=== PATIENT | male | born 1960 | race African-American/Black ===

== ENCOUNTER 2019-02-21 07:03 | Emergency (ER) | payer MEDICAID ==
[~2019-02-21] VITALS: Ht 188 cm; Wt 112.0 kg
[2019-02-21] MEDS ORDERED: LEVETIRACETAM 1000MG/100ML 100 ML IV ONE (07:15)
[2019-02-21 08:11] LABS: CHLORIDE 111 mEq/L (98-107)
[2019-02-21 08:15] LABS: ETHANOL BLOOD < 10 mg/dL
[2019-02-21 08:31] LABS: BASOPHILS % 0.9 % (0.0-2.0); EOSINOPHILS % 1.9 % (0.0-5.0); HEMATOCRIT. 48.8 % (42.0-52.0); HEMOGLOBIN. 16.1 g/dL (14.0-18.0); LYMPHOCYTES % 27.8 % (20.0-50.0); MEAN CORPUSCULAR HEMOGLOBIN 31.9 pg (28.0-32.0); MEAN CORPUSCULAR VOLUME 96.3 fL (80.0-94.0); MEAN PLATELET VOLUME 9.3 fl (7.4-10.4); MONOCYTES % 13.7 % (2.0-8.0); NEUTROPHILS % 55.7 % (40.0-76.0); PLATELET 177 x1000/uL (130-400); RED BLOOD CELL COUNT 5.06 mill/uL (4.7-6.1); RED CELL DISTRIBUTION WIDTH 13.2 % (11.6-14.6)
[2019-02-21 10:15] LABS: CLARITY URINE CLEAR (CLEAR); COLOR URINE YELLOW (YELLOW); KETONES URINE NEGATIVE (NEGATIVE); LEUKOCYTE ESTERASE URINE NEGATIVE (NEGATIVE); NITRITE URINE NEGATIVE (NEGATIVE); OCCULT BLOOD URINE NEGATIVE (NEGATIVE); PH URINE 5.5 (4.5-8.0); PROTEIN URINE 1+ (NEGATIVE); SPECIFIC GRAVITY URINE 1.025 (1.005-1.030)
[2019-02-21 10:28] LABS: *AMPHETAMINES SCREEN URINE NEGATIVE (NEGATIVE)
[2019-02-21 10:29] LABS: *BARBITURATES SCREEN URINE NEGATIVE (NEGATIVE); *BENZODIAZEPINES SCREEN URINE NEGATIVE (NEGATIVE); *COCAINE SCREEN URINE PRESUMTIVE POSITIVE (NEGATIVE); METHADONE URINE SCREEN NEGATIVE (NEGATIVE); OPIATES URINE SCREEN NEGATIVE (NEGATIVE); PHENCYCLIDINE URINE SCREEN NEGATIVE (NEGATIVE)
[2019-02-21 10:30] LABS: CANNABINOID URINE SCREEN NEGATIVE (NEGATIVE)
[2019-02-21 12:00] VITALS: BP 124/89
== END 2019-02-21 12:24 | disposition home or self-care (01) ==
LOC: ER 07:03
DX: G40.909 Epilepsy, unspecified, not intractable, without status epilepticus (principal)
CPT/HCPCS: 36415; 80053; 80305; 80320; 81003; 85025; 96365; 96366; 99283; J1953; G0480

== ENCOUNTER 2019-03-06 14:20 | Emergency (ER) | payer MEDICAID ==
[~2019-03-06] VITALS: Ht 185.4 cm; Wt 97.0 kg
[2019-03-06] MEDS ORDERED: SODIUM CHLORIDE 0.9% 1,000 ML IV ONE (14:45)
[2019-03-06 15:10] LABS: BASOPHILS % 0.4 % (0.0-2.0); EOSINOPHILS % 1.9 % (0.0-5.0); HEMATOCRIT. 42.5 % (42.0-52.0); HEMOGLOBIN. 14.3 g/dL (14.0-18.0); LYMPHOCYTES % 36.1 % (20.0-50.0); MEAN CORPUSCULAR HEMOGLOBIN 31.4 pg (28.0-32.0); MEAN CORPUSCULAR VOLUME 93.3 fL (80.0-94.0); MONOCYTES % 14.1 % (2.0-8.0); NEUTROPHILS % 47.5 % (40.0-76.0); PLATELET 164 x1000/uL (130-400); RED BLOOD CELL COUNT 4.56 mill/uL (4.7-6.1); RED CELL DISTRIBUTION WIDTH 12.9 % (11.6-14.6)
[2019-03-06 15:13] LABS: CHLORIDE 113 mEq/L (98-107)
[2019-03-06 15:17] LABS: ETHANOL BLOOD < 10 mg/dL
[2019-03-06 15:24] LABS: CARBAMAZEPINE < 0.5 ug/mL (4-12); PHENOBARBITAL < 2.1 ug/mL (15.0-40.0)
[2019-03-06] MEDS ORDERED: PHENYTOIN SODIUM 1,000 MG in SODIUM CHLORIDE 0.9% 100 ML IV ONE (16:00)
[2019-03-06] MEDS ORDERED: PHENYTOIN SODIUM EXTENDED 100MG CAPSULE PO ONE (17:45)
[2019-03-06 19:45] VITALS: BP 147/107
== END 2019-03-06 20:12 | disposition home or self-care (01) ==
LOC: ER 14:25
DX: R56.9 Unspecified convulsions (principal); R89.2 Abnormal level of other drugs, medicaments and biological substances in specimens from other organs, systems and tissues; J44.9 Chronic obstructive pulmonary disease, unspecified; I10 Essential (primary) hypertension; F14.10 Cocaine abuse, uncomplicated
CPT/HCPCS: 36415; 70450; 80053; 80156; 80165; 80184; 80185; 80320; 85025; 96365; 96366; 99284; J1165; J7030; J7050; G0480